=== PATIENT | female | born 1940 | race Hispanic/Latino ===

== ENCOUNTER → 2018-08-21 | Outpatient (CLI) | payer MEDICARE | END | disposition home or self-care (01) | LOC: RAH 10:41 | PROVIDERS: ATTEND Internal Medicine | DX: I82.402 Acute embolism and thrombosis of unspecified deep veins of left lower extremity (principal); Z86.711 Personal history of pulmonary embolism | CPT/HCPCS: 93971 ==

== ENCOUNTER → 2018-12-25 | Outpatient (CLI) | payer MEDICARE | END | disposition home or self-care (01) | LOC: RAH 15:22 | PROVIDERS: ATTEND Internal Medicine | DX: M47.816 Spondylosis without myelopathy or radiculopathy, lumbar region (principal); M43.8X6 Other specified deforming dorsopathies, lumbar region | CPT/HCPCS: 72100 ==

== ENCOUNTER → 2019-04-07 | Outpatient (CLI) | payer MEDICARE | END | disposition home or self-care (01) | LOC: RAH 14:01 | PROVIDERS: ATTEND Internal Medicine | DX: J44.9 Chronic obstructive pulmonary disease, unspecified (principal); M47.819 Spondylosis without myelopathy or radiculopathy, site unspecified; Z01.818 Encounter for other preprocedural examination | CPT/HCPCS: 71046 ==

== ENCOUNTER 2019-05-15 01:06 | Emergency (ER) | payer MEDICARE ==
[~2019-05-15 01:06] MED LIST: ALLO100T PO; AMLO5TAB4 PO; ATOR40TA69 PO; COLC0.6T70 PO; GLIP10TA9 PO; HYDR25TA PO; METO25 PO; TRAM50TA4 PO
[2019-05-15] MEDS ORDERED: ONDANSETRON ODT 4 MG TAB ONE (02:36)
[2019-05-15] MEDS ORDERED: HYDROCODONE/ACETAMINOPHEN 5/325 MG TAB ONE (02:37)
== END 2019-05-15 03:05 | disposition home or self-care (01) ==
LOC: EDH 01:06
DX: M10.9 Gout, unspecified (principal); M19.90 Unspecified osteoarthritis, unspecified site; I10 Essential (primary) hypertension; E11.9 Type 2 diabetes mellitus without complications; Z90.49 Acquired absence of other specified parts of digestive tract; Z90.710 Acquired absence of both cervix and uterus

== ENCOUNTER → 2019-09-04 | Outpatient (CLI) | payer MEDICARE | END | disposition home or self-care (01) | LOC: RAH 14:31 | PROVIDERS: ATTEND Internal Medicine | DX: Z01.818 Encounter for other preprocedural examination (principal); M47.895 Other spondylosis, thoracolumbar region; M41.9 Scoliosis, unspecified; Z90.49 Acquired absence of other specified parts of digestive tract | CPT/HCPCS: 71046 ==

== ENCOUNTER → 2024-06-09 | Outpatient (CLI) | payer MEDICARE ==
[~2024-06-09] MED LIST changes: -COLC0.6T70 PO; +COLC0.6T73 PO; +GLIP10TA16 PO; -GLIP10TA9 PO
--- NOTE | 2024-06-09 16:04 | HMCIMG ---
US CAROTID DUPLEX HISTORY: Syncope COMPARISON: None TECHNIQUE: Duplex carotid arterial Doppler ultrasound study was performed. FINDINGS: The common, internal and external carotid arteries are visualized. The peak systolic velocities of right common carotid artery is 77 centimeters per second, right internal carotid artery is 70 centimeters per second, right external carotid artery is 86 centimeters per second, and right vertebral artery is 56 centimeters per second. Right internal carotid artery to right common carotid artery ratio is 0.9. Right vertebral artery is seen with antegrade flow. The peak systolic velocities of left common carotid artery is 69 centimeters per second, left internal carotid artery is 86 centimeters per second, left external carotid artery is 97 centimeters per second, and left vertebral artery is 36 centimeters per second. Left internal carotid artery to left common carotid artery ratio is 1.2. Left vertebral artery is seen with antegrade flow. There are bilateral echogenic plaques. IMPRESSION: 1. No hemodynamically significant lesion is seen of either extracranial carotid artery system.
--- NOTE | 2024-06-09 16:32 | HMCIMG ---
CT HEAD/BRAIN W/O CONTRAST HISTORY: Syncope COMPARISON: None TECHNIQUE: Multiple sequential axial images of the head were obtained from the base of the skull through vertex. Patient was not given contrast through intravenous route. FINDINGS: The ventricles and extraventricular CSF spaces are dilated consistent with cerebral atrophy. Nonspecific white matter changes seen. There is no midline shift, mass effect or herniation. No acute intracranial bleed is seen. Visualized portion of the paranasal sinuses are grossly within normal limits. Bilateral basal ganglia calcifications are seen. IMPRESSION: 1. No acute intracranial bleed is seen. 2. Atrophy with white matter changes. CT was performed with one or more following dose reduction techniques: automated exposure control, adjustment of the mA and kv according to patient's size, or use of a iterative reconstruction technique.
== END | disposition home or self-care (01) ==
LOC: RAH 14:56
PROVIDERS: ATTEND Family Medicine
DX: G23.8 Other specified degenerative diseases of basal ganglia (principal); R90.82 White matter disease, unspecified; R55 Syncope and collapse
CPT/HCPCS: 70450; 93880